=== PATIENT | male | born 1995 | race Two or more races ===

== ENCOUNTER 2023-02-13 18:27 | Emergency (ER) | payer MEDICAID ==
[~2023-02-13] VITALS: Ht 160 cm; Wt 101.2 kg
[2023-02-13 19:50] LABS: Basophils # (auto) 0.1 10 ^3/uL (0-0.2); Basophils % (auto) 0.8 % (0.0-2.0); Eosinophils # (auto) 0.1 10 ^3/uL (0-0.8); Eosinophils % (auto) 0.8 % (0.0-7.0); Hematocrit 43.5 % (41.0-53.0); Hemoglobin 15.3 g/dL (13.5-17.5); Lymphocytes # (auto) 3.3 10 ^3/uL (0.4-5.4); Lymphocytes % (auto) 33.6 % (10.0-50.0); Mean Corpuscular Hemoglobin 30.8 pg (28.0-32.0); Mean Corpuscular Volume 88.1 fL (80.0-100.0); Monocytes # (auto) 0.6 10 ^3/uL (0-1.3); Monocytes % (auto) 6.5 % (0.0-12.0); Neutrophils # (auto) 5.8 10 ^3/uL (1.6-8.6); Neutrophils % (auto) 58.3 % (37.0-80.0); Nucleated Red Blood Cells % 0.1 %; Red Blood Cells 4.94 10^6/uL (4.5-5.90); Red Cell Distribution Width 13.2 % (11.8-14.3); White Blood Cell 9.9 10^3/uL (4.4-10.8)
[2023-02-13 19:57] LABS: Alanine Aminotransferase 66 U/L (7-40); Albumin 4.8 g/dL (3.2-4.8); Alkaline Phosphatase 55 U/L (46-116); Anion Gap 10 (5-15); Aspartate Aminotransferase 18 U/L (13-40); Blood Urea Nitrogen 11 mg/dL (9-23); Calcium 9.9 mg/dL (8.7-10.4); Carbon Dioxide 23 mmol/L (20-30); Chloride 107 mmol/L (98-107); Glucose 113 mg/dL (74-106); Lipase 31 U/L (12-53); Potassium 3.7 mmol/L (3.5-5.1); Sodium 140 mmol/L (136-145)
[2023-02-13 19:58] LABS: Bilirubin, Total 0.3 mg/dL (0.2-1.0); Total Protein 7.4 g/dL (5.7-8.2)
[2023-02-13 20:02] VITALS: PULSE 95; RESP 16; TEMP 98.9; O2SAT 95
[2023-02-13] MEDS ORDERED: LORazepam 0.5 MG TAB PO ONE (21:30)
[2023-02-13 22:12] VITALS: BP 128/93; PULSE 98; RESP 18; O2SAT 96
[2023-02-15 10:26] LABS: Free T3 3.86 pg/mL (2.3-4.2); Free T4 (Free Thyroxine) 0.94 ng/dL (0.89-1.76)
== END 2023-02-13 21:59 | disposition home or self-care (01) ==
LOC: ER 18:27 → EEVIPCON 18:27 → ER 21:59
DX: R00.2 Palpitations (principal); R00.0 Tachycardia, unspecified; F41.8 Other specified anxiety disorders
CPT/HCPCS: 36415; 36600; 71045; 80053; 82805; 83690; 83735; 84439; 84443; 84481; 84484; 85025; 85379; 93005